=== PATIENT | female | born 1965 | race Hispanic/Latino ===

== ENCOUNTER 2022-06-02 07:37 | Outpatient (CLI) | payer BC ==
[2022-06-02] MEDS ORDERED: Iopamidol 300 61% 100 ML VIAL FS ONE (10:57)
== END 2022-06-02 07:38 | disposition home or self-care (01) ==
LOC: CSHCT 07:37
PROVIDERS: ATTEND Nurse Practitioner Family
DX: R22.2 Localized swelling, mass and lump, trunk (principal)
CPT/HCPCS: 71260

== ENCOUNTER 2023-11-11 07:13 | Outpatient (CLI) | payer BC | END 2023-11-11 07:14 | disposition home or self-care (01) | LOC: CSHCT 07:13 | PROVIDERS: ATTEND Nurse Practitioner Family | DX: M79.89 Other specified soft tissue disorders (principal); N63.20 Unspecified lump in the left breast, unspecified quadrant; N63.10 Unspecified lump in the right breast, unspecified quadrant; R91.1 Solitary pulmonary nodule; E04.1 Nontoxic single thyroid nodule | CPT/HCPCS: 71260 ==